=== PATIENT | female | born 1965 | race Two or more races ===

== ENCOUNTER → 2022-12-10 | Emergency (ER) | payer OTHER ==
[~2022-12-10] VITALS: Ht 167.6 cm; Wt 69.4 kg
[~2022-12-10] MED LIST: SYNTHROID137 MCG
== END | disposition home or self-care (01) ==
LOC: ER 00:45
DX: B34.9 Viral infection, unspecified (principal); Z87.19 Personal history of other diseases of the digestive system; K52.89 Other specified noninfective gastroenteritis and colitis; Z86.39 Personal history of other endocrine, nutritional and metabolic disease; E07.89 Other specified disorders of thyroid; Z85.850 Personal history of malignant neoplasm of thyroid; Z88.6 Allergy status to analgesic agent; Z88.8 Allergy status to other drugs, medicaments and biological substances